=== PATIENT | male | born 1985 | race Two or more races ===

== ENCOUNTER 2023-07-27 21:21 | Emergency (ER) | payer OTHER ==
[~2023-07-27] VITALS: Ht 177.8 cm; Wt 81.6 kg
[2023-07-27 21:26] VITALS: O2SAT 100
[2023-07-27] MEDS ORDERED: HEPATITIS B VIRUS VACCINE-PF 20 MCG/ML VIAL IM ONE (21:45)
[2023-07-27] MEDS ORDERED: HEPATITIS B IMMUNE GLOBULIN 5 ML VIAL IM ONE ×2 (21:45→21:46)
[2023-07-27 22:25] LABS: HIV-1 p24 ANTIGEN NON REACTIVE (NONREACTIVE); HIV-1/2 ANTIBODY NON REACTIVE (NONREACTIVE)
[2023-07-30 03:08] LABS: HEPATITIS B SURFACE AB, QUAL Non Reactive (.); HEPATITIS B SURFACE AG Negative (Negative); HEPATITIS C VIRUS ANTIBODY Non Reactive (Non Reactive)
== END 2023-07-27 22:10 | disposition home or self-care (01) ==
LOC: ER 21:21
DX: S61.230A Puncture wound without foreign body of right index finger without damage to nail, initial encounter (principal); W46.0XXA Contact with hypodermic needle, initial encounter; Y93.89 Activity, other specified; Y92.89 Other specified places as the place of occurrence of the external cause; Y99.8 Other external cause status
CPT/HCPCS: 36415; 86706; 86803; 87340; 87806; 90371; 90746; A4606; A4663